=== PATIENT | female | born 1990 ===

== ENCOUNTER 2024-09-26 09:56 | Outpatient (CLI) | payer BC, SELFPAY | END 2024-09-26 09:57 | disposition home or self-care (01) | LOC: NFLDREF 09-29 14:57 | PROVIDERS: Referring Provider Otolaryngology; Visit Provider Otolaryngology | DX: K11.9 Disease of salivary gland, unspecified (principal); K11.8 Other diseases of salivary glands; G25.81 Restless legs syndrome | CPT/HCPCS: 82164; 82728; 83036; 83516; 84443; 85027; 85651; 86038; 86431; 86618; 86703 ==

== ENCOUNTER 2024-10-06 13:41 | Outpatient (CLI) | payer BC, SELFPAY ==
--- NOTE | 2024-10-06 14:00 | CRLHL7_ITS ---
For Patients: As a result of the Century Cures Act, medical imaging exams and procedure reports are released immediately into your electronic medical record. You may view this report before your referring provider. If you have questions, please contact your health care provider. INDICATION: Salivary gland pain. COMPARISON: None. TECHNIQUE: CT soft tissue neck with IV contrast. Isovue-370, 70 cc. FINDINGS: Normal bilateral parotid and submandibular glands. No inflammation or ductal dilatation. No obstructing sialolith. Normal thyroid gland. Scattered small normal-sized cervical lymph nodes bilaterally. No supraclavicular superior mediastinal adenopathy. Nasopharynx and oropharynx are clear. No inflammation within the paravertebral fat pads or retropharyngeal space. Normal thickness of the epiglottis. Normal glottis with symmetric vocal cords. Lung apices are clear. Normal alignment of the cervical spine. No prevertebral soft tissue swelling. IMPRESSION: 1. Normal bilateral parotid and submandibular glands. 2. No adenopathy. 3. Normal deep soft tissues of the neck Please note that all CT scans at this facility use dose modulation, iterative reconstruction, and/or weight-based dosing when appropriate to reduce radiation dose to as low as reasonably achievable. Dictated by Tee Armijo MD @ 10/08/2024 9:31:22 AM (Electronically Signed)
== END 2024-10-06 13:42 | disposition home or self-care (01) ==
LOC: CT 13:43
PROVIDERS: Visit Provider Otolaryngology
DX: K11.8 Other diseases of salivary glands (principal)
CPT/HCPCS: 70491; Q9967

== ENCOUNTER 2024-11-03 09:13 | Outpatient (CLI) | payer BC, SELFPAY | END 2024-11-03 09:14 | disposition home or self-care (01) | LOC: NFLDREF 11-09 07:01 | PROVIDERS: Visit Provider Otolaryngology | DX: A69.20 Lyme disease, unspecified (principal) | CPT/HCPCS: 86618 ==